=== PATIENT | female | born 1995 | race Caucasian/White ===

== ENCOUNTER 2020-11-20 14:32 | Outpatient (CLI) | payer BC | END 2020-11-20 14:33 | disposition home or self-care (01) | LOC: BICMRI 14:32 | PROVIDERS: ATTEND Nurse Practitioner Acute Care | DX: H47.10 Unspecified papilledema (principal); E23.6 Other disorders of pituitary gland | CPT/HCPCS: 70553 ==

== ENCOUNTER 2021-01-21 07:01 | Day surgery (SDC) | payer BC ==
[2021-01-19 15:35] VITALS: BMI 48.6
[2021-01-21 08:20] VITALS: BP 143/76; TEMP 98.1
== END 2021-01-21 10:50 | disposition home or self-care (01) ==
LOC: RAD 07:01
PROVIDERS: ATTEND Nurse Practitioner Acute Care
PROC: 009U3ZX Drainage of Spinal Canal, Percutaneous Approach, Diagnostic (ICD-10-PCS; principal; 2021-01-21)
DX: H47.10 Unspecified papilledema (principal); J30.2 Other seasonal allergic rhinitis; G93.2 Benign intracranial hypertension; Z79.899 Other long term (current) drug therapy
CPT/HCPCS: 36415; 62270; 82945; 84157; 84703; 89051